=== PATIENT | female | born 1970 | race Two or more races ===

== ENCOUNTER 2018-04-17 12:26 | Outpatient (CLI) | payer OTHER | END 2018-04-17 12:34 | disposition home or self-care (01) | LOC: SONOGRAMA 12:26 | DX: R10.2 Pelvic and perineal pain (principal) ==

== ENCOUNTER 2018-04-30 09:20 | Outpatient (CLI) | payer OTHER ==
[2018-05-05] MEDS ORDERED: ZANTAC300 MG PO (09:06)
[2018-05-05] MEDS ORDERED: CATAFLAN PO (09:07)
[2018-05-05] MEDS ORDERED: RELAFEN PO (09:07)
== END 2018-04-30 09:44 | disposition home or self-care (01) ==
LOC: RAD 09:20
DX: N95.0 Postmenopausal bleeding (principal)

== ENCOUNTER → 2018-05-14 | Day surgery (SDC) | payer OTHER ==
[~2018-05-14] MED LIST: CATAFLAN PO; RELAFEN PO; ZANTAC300 MG PO
== END | disposition home or self-care (01) ==
LOC: CIR.AMB 05-07 08:19
DX: N85.01 Benign endometrial hyperplasia (principal); N84.0 Polyp of corpus uteri

== ENCOUNTER → 2019-08-10 | Outpatient (CLI) | payer OTHER | END | disposition home or self-care (01) | LOC: MAMO-SONO 09:26 | DX: Z12.31 Encounter for screening mammogram for malignant neoplasm of breast (principal); N64.4 Mastodynia ==

== ENCOUNTER 2021-07-10 08:57 | Outpatient (CLI) | payer OTHER | END 2021-07-10 09:05 | disposition home or self-care (01) | LOC: MAMO-SONO 08:57 | PROVIDERS: ATTEND General Practice | DX: N64.89 Other specified disorders of breast (principal); Z12.39 Encounter for other screening for malignant neoplasm of breast ==

== ENCOUNTER 2022-11-05 09:37 | Outpatient (CLI) | payer OTHER | END 2022-11-05 09:46 | disposition home or self-care (01) | LOC: MAMO-SONO 09:37 | DX: N64.4 Mastodynia (principal); R10.2 Pelvic and perineal pain; I11.9 Hypertensive heart disease without heart failure ==

== ENCOUNTER 2023-01-04 06:59 | Emergency (ER) | payer OTHER ==
[~2023-01-04] VITALS: Ht 165.1 cm; Wt 86.2 kg
== END 2023-01-04 11:47 | disposition home or self-care (01) ==
LOC: ER 06:59
DX: S52.502A Unspecified fracture of the lower end of left radius, initial encounter for closed fracture (principal); W18.30XA Fall on same level, unspecified, initial encounter; Y93.9 Activity, unspecified; Y92.019 Unspecified place in single-family (private) house as the place of occurrence of the external cause; Y99.9 Unspecified external cause status

== ENCOUNTER 2023-01-07 10:34 | Outpatient (CLI) | payer OTHER | END 2023-01-07 10:40 | disposition home or self-care (01) | LOC: RAD 10:34 | PROVIDERS: ATTEND Orthopaedic Surgery | DX: Z03.818 Encounter for observation for suspected exposure to other biological agents ruled out (principal); Z20.828 Contact with and (suspected) exposure to other viral communicable diseases; Z20.822 Contact with and (suspected) exposure to COVID-19; M35.81 Multisystem inflammatory syndrome ==

== ENCOUNTER 2023-01-09 08:55 | Outpatient (CLI) | payer OTHER | END 2023-01-09 08:56 | disposition home or self-care (01) | LOC: NUCLEAR 08:55 | PROVIDERS: ATTEND General Practice | DX: M85.9 Disorder of bone density and structure, unspecified (principal) ==

== ENCOUNTER 2023-02-08 10:58 | Outpatient (CLI) | payer OTHER | END 2023-02-08 11:06 | disposition home or self-care (01) | LOC: RAD 10:58 | PROVIDERS: ATTEND General Practice | DX: S52.572A Other intraarticular fracture of lower end of left radius, initial encounter for closed fracture (principal); M54.9 Dorsalgia, unspecified ==

== ENCOUNTER 2023-03-18 07:19 | Outpatient (CLI) | payer OTHER | END 2023-03-18 07:27 | disposition home or self-care (01) | LOC: MAMO-SONO 07:19 → RAD 07:19 → MAMO-SONO 07:27 | PROVIDERS: ATTEND General Practice | DX: I11.9 Hypertensive heart disease without heart failure (principal) ==

== ENCOUNTER 2024-03-09 12:15 | Outpatient (CLI) | payer OTHER | END 2024-03-09 12:31 | disposition home or self-care (01) | LOC: MAMO-SONO 12:15 | PROVIDERS: ATTEND General Practice | DX: I11.9 Hypertensive heart disease without heart failure (principal); N64.2 Atrophy of breast ==